=== PATIENT | female | born 1960 | race Caucasian/White ===

== ENCOUNTER 2019-06-15 04:08 | Observation (INO) ==
[2019-06-15] MEDS ORDERED: ONDANSETRON 4 MG/2 ML VIAL IV STA (04:22)
[2019-06-15] MEDS ORDERED: MORPHINE 4 MG/1 ML VIAL IV STA (04:22)
[2019-06-15] MEDS ORDERED: SODIUM CHLORIDE 0.9% 1,000 ML IV STA (04:22)
[2019-06-15 04:52] LABS: Basophils # 0.1 10*3/uL (0.0-0.2); Basophils % 0.8 % (0.0-0.8); Eosinophils # 0.1 10*3/uL (0.0-0.87); Eosinophils % 1.8 % (0.00-10.9); Hematocrit 41.8 VOL% (35.7-47.0); Hemoglobin 13.4 GM/DL (12.0-16.0); Immature Granulocytes % 1.6 %; Immature Granulocytes Absolute 0.12 #; Lymphocytes # 2.9 10*3/uL (1.4-4.0); Lymphocytes % 37.7 % (21.3-54.2); Mean Corpuscular HGB Conc 32.1 GM/DL (32-36); Mean Corpuscular Volume 89.1 FL (87-102); Mean Platelet Volume 9.7 FL (9.6-12.0); Monocytes % 8.5 % (1.7-12.7); Neutrophils % 49.6 % (38.7-73.9); Platelet Count 333 T/CUMM (130-400); Red Blood Count 4.69 MC/CUMM (3.8-5.5); Red Cell Distribution Width 12.9 % (9.3-17.3); White Blood Count 7.6 T/CUMM (4-12)
[2019-06-15 05:14] LABS: Albumin 3.2 G/DL (3.4-5.0); Bilirubin,Total 0.6 MG/DL (0.2-1.0); Calcium 9.1 MG/DL (8.5-10.1); Osmolality,Calculated 276.7 MOS/KG (273-304); Total Protein 8.4 G/DL (6.4-8.3)
[2019-06-15] MEDS ORDERED: POTASSIUM CHLORIDE 20 MEQ/15 ML UDCUP PO ONE (05:22)
[2019-06-15] MEDS ORDERED: cefOXitin 2,000 MG in SYRINGE 1 EACH IV ONE (07:30)
[2019-06-15] MEDS ORDERED: ALBUTEROL/IPRATROPIUM 3 ML NEB RESP TX PRN (08:40)
[2019-06-15] MEDS ORDERED: KETOROLAC 15 MG/1 ML VIAL IV PRN (08:40)
[2019-06-15] MEDS ORDERED: ONDANSETRON 4 MG/2 ML VIAL IV PRN (08:40)
[2019-06-15] MEDS ORDERED: ACETAMINOPHEN 325 MG TABLET PO PRN (08:40)
[2019-06-15] MEDS: HYDROmorphone 2 MG/1 ML VIAL IV PRN ×2 (10:12→22:23)
[2019-06-15] MEDS ORDERED: BUPIVACAINE MPF 0.25% 30 ML VIAL ONE (10:19)
[2019-06-15] MEDS ORDERED: LIDOCAINE 1%/EPI INJ 20 ML VIAL ONE (10:19)
[2019-06-15] MEDS: LACTATED RINGERS 1,000 ML IV SCH ×3 (10:30→20:41)
[2019-06-15] MEDS: PANTOPRAZOLE 40 MG TABLET PO SCH (10:49)
[2019-06-15] MEDS ORDERED: propofoL 200 MG/20 ML VIAL IV ONE (15:22)
[2019-06-15] MEDS ORDERED: MIDAZOLAM 2 MG/2 ML VIAL ONE (15:22)
[2019-06-15] MEDS ORDERED: SEVOFLURANE 1 UNIT/15 MINUTE INH ONE (15:22)
[2019-06-15] MEDS ORDERED: fentaNYL 100 MCG/2 ML VIAL ONE ×2 (15:22)
[2019-06-15] MEDS ORDERED: DEXAMETHASONE 4 MG/1 ML VIAL ONE (15:22)
[2019-06-15] MEDS ORDERED: LIDOCAINE 2% 5 ML VIAL ONE (15:22)
[2019-06-15] MEDS ORDERED: ONDANSETRON 4 MG/2 ML VIAL ONE (15:23)
[2019-06-15] MEDS ORDERED: LABETALOL 100 MG/20 ML VIAL IV ONE (15:23)
[2019-06-15] MEDS ORDERED: KETOROLAC 30 MG/1 ML VIAL ONE (15:23)
[2019-06-15] MEDS ORDERED: SUCCINYLCHOLINE 200 MG/10 ML VIAL ONE (15:23)
[2019-06-15] MEDS ORDERED: ACETAMINOPHEN 1,000 MG/100 ML VIAL IV ONE (15:23)
[2019-06-15] MEDS ORDERED: ROCURONIUM 100 MG/10 ML VIAL IV ONE (15:23)
[2019-06-15] MEDS ORDERED: GLYCOPYRROLATE 0.4 MG/2 ML VIAL ONE (15:23)
[2019-06-15] MEDS ORDERED: NEOSTIGMINE 10 MG/10 ML VIAL ONE (15:23)
[2019-06-16] MEDS: LACTATED RINGERS 1,000 ML IV SCH ×2 (05:01→11:45)
[2019-06-16] MEDS: HYDROmorphone 2 MG/1 ML VIAL IV PRN ×2 (05:07→09:03)
[2019-06-16 06:21] LABS: Basophils % 0.3 % (0.0-0.8); Hematocrit 37.2 VOL% (35.7-47.0); Hemoglobin 11.8 GM/DL (12.0-16.0); Immature Granulocytes Absolute 0.09 #; Lymphocytes # 1.4 10*3/uL (1.4-4.0); Lymphocytes % 14.8 % (21.3-54.2); Mean Corpuscular HGB Conc 31.7 GM/DL (32-36); Mean Corpuscular Volume 90.3 FL (87-102); Mean Platelet Volume 9.9 FL (9.6-12.0); Neutrophils % 76.9 % (38.7-73.9); Platelet Count 309 T/CUMM (130-400); Red Blood Count 4.12 MC/CUMM (3.8-5.5); White Blood Count 9.4 T/CUMM (4-12)
[2019-06-16 06:46] LABS: Albumin 2.6 G/DL (3.4-5.0); Bilirubin,Total 0.7 MG/DL (0.2-1.0); Calcium 8.7 MG/DL (8.5-10.1); Osmolality,Calculated 277.5 MOS/KG (273-304)
[2019-06-16] MEDS: PANTOPRAZOLE 40 MG TABLET PO SCH (08:11)
[2019-06-16] MEDS ORDERED: DOCUSATE SODIUM 100 MG CAPSULE PO PRN (11:48)
[2019-06-16 12:31] VITALS: BP 127/73
== END 2019-06-16 14:18 | disposition home or self-care (01) ==
LOC: N.EDINP 04:08 → N.ED 04:08 → N.3E 09:51
PROVIDERS: ADMIT Surgery; ATTEND Surgery
PROC: LAPCHOL (2019-06-15 13:27)